=== PATIENT | male | born 1965 | race Hispanic/Latino ===

== ENCOUNTER 2022-04-10 22:26 | Emergency (ER) | payer OTHER ==
[~2022-04-10] VITALS: Ht 177.8 cm; Wt 73.5 kg
[2022-04-10] MEDS ORDERED: IBUPROFEN 600 MG TAB ONE (23:38)
[2022-04-11] MEDS ORDERED: IBUPROFEN 600 MG TAB PO STA (00:37)
== END 2022-04-10 23:50 | disposition home or self-care (01) ==
LOC: ER 22:34
DX: S50.811A Abrasion of right forearm, initial encounter (principal); S80.812A Abrasion, left lower leg, initial encounter; V43.52XA Car driver injured in collision with other type car in traffic accident, initial encounter; Y92.488 Other paved roadways as the place of occurrence of the external cause